=== PATIENT | male | born 1960 | race Caucasian/White ===

== ENCOUNTER 2020-09-26 15:13 | Emergency (ER) | payer OTHER ==
[~2020-09-26 15:13] MED LIST: AMOX500; CEPH500 PO; CLIN300 PO; CRUTCH3 USE; CRUTCH4 USE; DOXY100 PO; GABA100 PO; HYDACE5; HYDACE5 PO; IBUP800 PO; NAPR500 PO; PANT40 PO; PENVK500 PO; RXCEPH500 PO; SULF10OPO OP; SULTRIDS PO; TRAM50 PO
== END 2020-09-26 16:42 | disposition left against medical advice (07) ==
LOC: ER 15:13
DX: Z53.21 Procedure and treatment not carried out due to patient leaving prior to being seen by health care provider (principal)

== ENCOUNTER 2021-11-12 14:05 | Emergency (ER) | payer OTHER ==
[~2021-11-12] VITALS: Ht 180.3 cm; Wt 81.7 kg
== END 2021-11-12 17:09 | disposition home or self-care (01) ==
LOC: ER 14:05
DX: L02.31 Cutaneous abscess of buttock (principal); F17.210 Nicotine dependence, cigarettes, uncomplicated
CPT/HCPCS: 10060; 99282-25

== ENCOUNTER 2022-04-09 07:24 | Emergency (ER) | payer OTHER ==
[~2022-04-09] VITALS: Ht 180.3 cm; Wt 81.7 kg
[~2022-04-09 07:24] MED LIST changes: +Bactrim Ds Tab1 EACH PO
== END 2022-04-09 07:57 | disposition home or self-care (01) ==
LOC: ER 07:24
DX: M72.2 Plantar fascial fibromatosis (principal); L84 Corns and callosities; F17.210 Nicotine dependence, cigarettes, uncomplicated; Z79.899 Other long term (current) drug therapy
CPT/HCPCS: 99283

== ENCOUNTER 2023-10-24 14:19 | Inpatient (IN) | payer BC ==
[~2023-10-24] VITALS: Ht 180.3 cm; Wt 83.9 kg
[2023-10-24] VITALS (11 sets, daily range): BP systolic 96–150; BP diastolic 62–99
[2023-10-24] MEDS ORDERED: Ketorolac Tromethamine 15mg Vial IV ONE (14:30)
[2023-10-24] MEDS ORDERED: Ondansetron HCl 2 MG / ML 2ML Vial IV ONE ×2 (14:30→18:05)
[2023-10-24 15:17] LABS: Albumin, Blood 4.2 g/dL (3.4-5.0); Bun/Creatinine Ratio 19.8 (12.0-20.0); Calcium, Blood 9.3 mg/dL (8.5-10.1); Creatinine, Blood 0.76 mg/dL (0.60-1.20); Globulin, Blood 4.1 g/dL (2.2-4.0); Potassium, Blood 3.9 mmol/L (3.5-5.5); Total Protein, Blood 8.3 g/dL (6.4-8.2)
[2023-10-24 15:19] LABS: BASOPHILS ABSOLUTE AUTO 0.03 K/mm3 (0.00-0.23); BASOPHILS PERCENT AUTO 0 % (0-2); EOSINOPHILS ABSOLUTE AUTO 0.03 K/mm3 (0.00-0.68); EOSINOPHILS PERCENT AUTO 0 % (0-6); Hematocrit 48.5 % (37.0-53.0); Hemoglobin 16.7 g/dL (13.5-17.5); IMMATURE GRAN ABSOLUTE AUTO 0.05 K/mm3 (0.00-0.10); IMMATURE GRAN PERCENT AUTO 0 % (0-1); LYMPHOCYTES ABSOLUTE AUTO 0.94 K/mm3 (0.84-5.20); LYMPHOCYTES PERCENT AUTO 7 % (21-46); MONOCYTES ABSOLUTE AUTO 0.51 K/mm3 (0.16-1.47); MONOCYTES PERCENT AUTO 4 % (4-13); Mean Corpuscular HGB Conc 34.4 g/dL (31.5-36.5); Mean Corpuscular Volume 93 fL (80-100); Mean Platelet Volume 10.4 fL (9.1-12.4); NEUTROPHILS ABSOLUTE AUTO 12.59 K/mm3 (1.96-9.15); NEUTROPHILS PERCENT AUTO 89 % (41-73); Platelet Count 302 K/mm3 (150-400); RDW Coefficient Variation 15.1 % (11.7-14.2); RDW Standard Deviation 51.8 fL (35.1-46.3); Red Blood Cell Count 5.22 M/mm3 (4.30-5.90); White Blood Cell Count 14.15 K/mm3 (4.00-11.30)
[2023-10-24] MEDS ORDERED: propofoL 20 ML IV ONE ×2 (17:22→19:50)
[2023-10-24] MEDS ORDERED: SuccINYLCHOLINE Chloride 100 MG/5 ML 5MLSYR ONE (17:22)
[2023-10-24] MEDS ORDERED: Rocuronium Bromide 10 MG/ML 5ML Injection IV ONE (17:22)
[2023-10-24] MEDS ORDERED: FentaNYL Citrate 50 MCG/ML 2 ML Injection ONE ×2 (17:23→19:08)
[2023-10-24] MEDS ORDERED: Lactated Ringer's 1,000 ML IV SCH (17:45)
[2023-10-24] MEDS ORDERED: Bupivacaine 0.5% HCl 5 MG/ML 30MLVIAL ONE (17:57)
[2023-10-24] MEDS ORDERED: CeFAZolin Sodium 2,000 MG in NS 100 ML IV SCH (18:05)
[2023-10-24] MEDS ORDERED: NS 100 ML IV ONE (18:32)
[2023-10-24] MEDS ORDERED: CeFAZolin Sodium 2,000 MG VIAL ONE (18:32)
--- NOTE | 2023-10-24 18:41 | NUR ---
PT INTO DAY SURG. VSS. PREPPED PER PROCEDURE. RESTING EYES CLOSED.
[2023-10-24] MEDS ORDERED: Ropivacaine 0.5% HCL/PF 5 MG/ML 30ML Vial ONE (18:49)
[2023-10-24] MEDS ORDERED: Dexamethasone Sod Phos 10 MG/ML 1ML VIAL ONE (19:04)
[2023-10-24] MEDS ORDERED: Ondansetron HCl 2 MG / ML 2ML Vial ONE (19:04)
[2023-10-24] MEDS ORDERED: Sugammadex Sodium 200 MG/2ML SDV (100 MG/ML) ONE (19:28)
[2023-10-24] MEDS ORDERED: Sodium Chloride 0.9% Inj 20 ML IV ONE (19:32)
[2023-10-24] MEDS ORDERED: Acetaminophen 325 MG TABLET PO PRN (19:50)
[2023-10-24] MEDS ORDERED: HYDROmorphone HCl/Pf 1MG SYR IV PRN (19:50)
[2023-10-24] MEDS ORDERED: Ondansetron HCl 2 MG / ML 2ML Vial IV PRN ×2 (19:55)
[2023-10-24] MEDS ORDERED: NS 1,000 ML IV SCH (19:55)
[2023-10-24] MEDS ORDERED: Ketorolac Tromethamine 30mg Vial IV PRN (20:15)
--- NOTE | 2023-10-24 20:21 | NUR ---
10/24/232020 Linda Garay ANESTHESIA ADMINISTERED TAP BLOCK ONCE SURGERY ENDED AND PRIOR TO PATIENT EXTUBATION.
[2023-10-24] MEDS ORDERED: Famotidine 10 MG/ML 2ML Vial IV SCH (21:00)
--- NOTE | 2023-10-24 21:30 | NUR ---
ARRIVAL PT ARRIVED TO THE FLOOR VIA GURNEY. A/OX4, ABLE TO TRANSFER OUT OF BED WITH SBA. VSS. MINIMAL SHADOWING NOTED ON PICCO. PT REPORTS NO PAIN AT THIS TIME. IVF INFUSING PER EMAR.
[2023-10-25 04:06] VITALS: BP 109/65
--- NOTE | 2023-10-25 04:12 | NUR ---
SHIFT SUMMARY POD1 LYSIS OF ADHESIONS. MIDLINE PICCO IS COMPRESSED. RED SHADOWING NOTED ON RLQ OF DRESSING AND ONE DIME SIZE SPOT IN THE MIDDLE OF THE DRESSING. VSS. PT SLEPT WELL T/O THE NIGHT. DID NOT GET OOB. VOIDING INTO URINAL INDEPENDENTLY. PASSING FLATTUS. IVF INFUSING PER EMAR. PT DID NOT REQUIRE ANY PAIN MEDICATION T/O THE NIGHT. HE REPORTS NO PAIN. PT REOIRTS HE IS EXCITED TO BE DISCHARGED FROM THE HOSPITAL AND GO BACK TO WORK. OVERALL, NO ACUTE EVENTS NOTED.
[2023-10-25 07:55] VITALS: BP 109/78
[2023-10-25] MEDS ORDERED: Enoxaparin 40 MG/0.4 ML SYR SC SCH (09:00)
--- NOTE | 2023-10-25 17:57 | NUR ---
SHIFT SUMMARY POD 1 PT TOLERATING CLEAR LIQUIDS. PASSING GAS, DENIES PAIN. IND IN ROOM. VOIDING. DENIES NEEDS. POSSIBLE PLAN FOR DISCHARGE TOMORROW.
[2023-10-25 20:23] VITALS: BP 122/84
--- NOTE | 2023-10-26 01:46 | NUR ---
ANSWERED A CALL LIGHT THAT THE PT STATED HE HAD SOMETHING IN HIS EYE AND WANTED EYE DROPS. PT DOES NOT HAVE EYE DROPS ORDERED. I ASKED PT IF HE HAD SOMETHING IN HIS EYE WHEN I ENTERED THE ROOM AND PT RESPONDED THAT HE DID. I STATED I HAVE A WET WASH CLOTH FOR YOU TO TRY TO HELP YOUR EYE. PT STATED HE "WASNT STICKING THAT IN MY EYE. IT HAS FIBERS." I STATED THAT IS ALL WE HAVE FOR YOU. PT TOOK WASH CLOTH AND THREW IT ON THE BED SIDE TABLE AND THEN DISMISSED ME FROM THE ROOM. REPORTED THIS TO PRIMARY NURSE.
--- NOTE | 2023-10-26 04:33 | NUR ---
SHIFT SUMMARY NO ACUTE CHANGES THIS SHIFT. POD 2-EX LAP W/LYSIS OF ADHESIONS. MIDLINE UMM DRESSING INTACT & COMPRESSED. MOD AMOUNT SHADOWING ON DRESSING. REPORTS 03/12 ABD PAIN AROUND SURGICAL SITE, STATES PAIN LEVEL IS TOLERABLE. PASSING FLATUS. ACTIVE BT A4Q. DENIES N/V. TOLERATING DIET. VSS. ANTICIPATING DC HOME TODAY. CALL LIGHT IN REACH & PT ABLE TO MAKE NEEDS KNOWN.
[2023-10-26 05:23] VITALS: BP 101/96
--- NOTE | 2023-10-26 07:45 | NUR ---
ASSUMING CARE ASSUMING CARE AT 0700. BEDSIDE SHIFT REPORT BY OFF GOING RN. PT AWAKE AND ALERT AT THIS TIME. CALL LIGHT IN REACH
[2023-10-26 08:33] VITALS: BP 127/81
--- NOTE | 2023-10-26 13:22 | NUR ---
VERBAL AND WRITTEN DISCHARGE INSTRUCTIONS GIVEN. VERBALIZES UNDERSTANDING. AMBULATED FROM UNIT IN NO DISTRESS WITH SPOUSE.
== END 2023-10-26 13:00 | disposition home or self-care (01) | DRG 337 ==
LOC: ER 14:19 → SURS 17:50 → PCU 10-25 14:01
PROVIDERS: Physician Assistant; ADMIT Surgery
PROC: 0DNU0ZZ Release Omentum, Open Approach (ICD-10-PCS; 2023-10-24)
PROC: 0DN80ZZ Release Small Intestine, Open Approach (ICD-10-PCS; principal; 2023-10-24 18:00)
DX: K56.609 Unspecified intestinal obstruction, unspecified as to partial versus complete obstruction (principal); F17.210 Nicotine dependence, cigarettes, uncomplicated; Z98.890 Other specified postprocedural states; Z90.89 Acquired absence of other organs
CPT/HCPCS: 74177; 80053; 83690; 85025; 93005; 93010; 94760; 94762; 96374; 96375; 99285-25; J0330; J0690; J1100; J1650; J1885; J2405; J2704; J2795; J3010; J7030; Q9967

== ENCOUNTER 2023-11-08 18:48 | Emergency (ER) | payer BC ==
[~2023-11-08] VITALS: Ht 180.3 cm; Wt 83.0 kg
[2023-11-08 18:56] VITALS: BP 131/96
== END 2023-11-08 21:19 | disposition home or self-care (01) ==
LOC: ER 18:48
DX: T81.30XA Disruption of wound, unspecified, initial encounter (principal); F17.210 Nicotine dependence, cigarettes, uncomplicated
CPT/HCPCS: 99282

== ENCOUNTER 2023-11-19 01:36 | Day surgery (SDC) | payer BC | END 2023-11-19 22:54 | disposition home or self-care (01) | LOC: WOUND 01:36 | DX: T81.32XD Disruption of internal operation (surgical) wound, not elsewhere classified, subsequent encounter (principal) | CPT/HCPCS: A6213; G0463 ==

== ENCOUNTER 2023-12-02 01:53 | Day surgery (SDC) | payer BC | END 2023-12-02 23:12 | disposition home or self-care (01) | LOC: WOUND 01:53 | DX: T81.31XA Disruption of external operation (surgical) wound, not elsewhere classified, initial encounter (principal) ==

== ENCOUNTER 2023-12-09 03:16 | Day surgery (SDC) | payer BC | END 2023-12-09 23:00 | LOC: WOUND 03:16 | DX: T81.31XA Disruption of external operation (surgical) wound, not elsewhere classified, initial encounter (principal) ==

== ENCOUNTER 2023-12-16 02:18 | Day surgery (SDC) | payer BC | END 2023-12-16 23:00 | disposition home or self-care (01) | LOC: WOUND 02:18 | DX: T81.321A Disruption or dehiscence of closure of internal operation (surgical) wound of abdominal wall muscle or fascia, initial encounter (principal); Y83.8 Other surgical procedures as the cause of abnormal reaction of the patient, or of later complication, without mention of misadventure at the time of the procedure ==

== ENCOUNTER 2023-12-23 04:05 | Day surgery (SDC) | payer BC | END 2023-12-23 23:21 | disposition home or self-care (01) | LOC: WOUND 04:05 | DX: T81.31XA Disruption of external operation (surgical) wound, not elsewhere classified, initial encounter (principal); Y83.8 Other surgical procedures as the cause of abnormal reaction of the patient, or of later complication, without mention of misadventure at the time of the procedure ==

== ENCOUNTER 2023-12-30 01:16 | Day surgery (SDC) | payer BC | END 2023-12-30 23:00 | disposition home or self-care (01) | LOC: WOUND 01:16 | DX: T81.31XD Disruption of external operation (surgical) wound, not elsewhere classified, subsequent encounter (principal) | CPT/HCPCS: G0463 ==